=== PATIENT | male | born 2000 | race Caucasian/White ===

== ENCOUNTER 2022-10-20 15:28 | Emergency (ER) | payer OTHER ==
[~2022-10-20] VITALS: Ht 190.5 cm; Wt 109.0 kg
[2022-10-20 15:35] VITALS: BP 140/87
== END 2022-10-20 16:35 | disposition left against medical advice (07) ==
LOC: ER 15:28
DX: Z53.21 Procedure and treatment not carried out due to patient leaving prior to being seen by health care provider (principal)
CPT/HCPCS: 99281; 99283